=== PATIENT | male | born 1960 | race Caucasian/White ===

== ENCOUNTER 2017-02-09 15:40 | Emergency (ER) | payer OTHER ==
[~2017-02-09] VITALS: Ht 177.8 cm; Wt 111.6 kg
[~2017-02-09 15:40] MED LIST: AMLO1CAP PO; DEXT10TA7 PO; FENO145T32 PO
[2017-02-09 15:43] VITALS: BP 151/92
[2017-02-09 16:27] LABS: HEMATOCRIT 45.7 % (39.2-51.8); WHITE BLOOD COUNT 11.6 x10^3/uL (3.4-10)
[2017-02-09] MEDS ORDERED: SODIUM CHLORIDE FLUSH 10ML SYR IVF ONE (16:30)
[2017-02-09] MEDS ORDERED: SODIUM CHLORIDE 0.9% 1,000ML IVBOLUS ONE (16:30)
[2017-02-09] MEDS ORDERED: MORPHINE SULFATE 4 MG/ML, 1ML ONE ×2 (16:36→17:36)
[2017-02-09] MEDS ORDERED: ONDANSETRON 2MG/ML, 2ML ONE (16:36)
[2017-02-09 16:37] LABS: ASPARTATE AMINO TRANSFERASE 25 U/L (15-37); BLOOD UREA NITROGEN 14 mg/dL (7-18)
[2017-02-09] MEDS ORDERED: morphine SULFATE 10 MG/ML, 1ML IVPush ONE ×2 (17:00→18:00)
[2017-02-09] MEDS ORDERED: ONDANSETRON 2MG/ML, 2ML IVPush ONE (17:00)
[2017-02-09] MEDS ORDERED: OMNIPAQUE 350 MG/ML, 100ML BOTTLE ONE (17:18)
[2017-02-09] MEDS ORDERED: CIPROFLOXACIN/PMX 400MG/200ML 200 ML ONE (17:46)
[2017-02-09] MEDS ORDERED: CIPROFLOXACIN/PMX 400MG/200ML 200 ML IV ONE (18:00)
== END 2017-02-09 19:20 | disposition home or self-care (01) ==
LOC: ED 19:00
DX: K57.32 Diverticulitis of large intestine without perforation or abscess without bleeding (principal); I10 Essential (primary) hypertension; C64.9 Malignant neoplasm of unspecified kidney, except renal pelvis; F90.9 Attention-deficit hyperactivity disorder, unspecified type; Z85.528 Personal history of other malignant neoplasm of kidney; Z87.442 Personal history of urinary calculi; Z90.5 Acquired absence of kidney
CPT/HCPCS: 36415; 74177; 80053; 81003; 83690; 85025; 96361; 96365; 96375; 96376; 99285; J0744; J2270; J2405; J7030; Q9967

== ENCOUNTER 2017-07-23 15:41 | Inpatient (IN) | payer BC, OTHER ==
[~2017-07-23] VITALS: Ht 177.8 cm; Wt 107.5 kg
[2017-07-23] MEDS: ACETAMINOPHEN 500 MG TABLET PO SCH (00:25)
[2017-07-23 16:21] LABS: BASOPHILS # (AUTO) 0.05 x10^3/uL (0-0.1); BASOPHILS % (AUTO) 1 % (0-1); EOSINOPHILS # (AUTO) 0.19 x10^3/uL (0-0.4); EOSINOPHILS % (AUTO) 2 % (1-7); LYMPHOCYTES # (AUTO) 1.96 x10^3/uL (1-3.4); LYMPHOCYTES % (AUTO) 23 % (22-44); MD NO; MEAN CORPUSCULAR HEMOGLOBIN 27.4 pg (27.5-34.5); MEAN CORPUSCULAR HGB CONC 33.6 g/dL (33.2-36.2); MEAN CORPUSCULAR VOLUME 81.3 fL (81-97); MEAN PLATELET VOLUME 9.4 fL (7.4-10.4); MONOCYTES # (AUTO) 0.78 x10^3/uL (0.2-0.8); MONOCYTES % (AUTO) 9 % (2-9); NEUTROPHILS # (AUTO) 5.55 x10^3/uL (1.8-6.8); NEUTROPHILS % (AUTO) 65 % (42-75); PLATELET COUNT 275 x10^3/uL (130-400); RED BLOOD COUNT 5.69 x10^6/uL (4.38-5.82); RED CELL DISTRIBUTION WIDTH 14.4 % (9.4-14.8)
[2017-07-23] MEDS ORDERED: ONDANSETRON 2MG/ML, 2ML IVPush ONE (16:30)
[2017-07-23] MEDS ORDERED: SODIUM CHLORIDE FLUSH 10ML SYR IVF ONE (16:30)
[2017-07-23] MEDS ORDERED: ASPIRIN 81 MG TABLET CHEW PO ONE (16:30)
[2017-07-23 16:31] LABS: ALBUMIN 4.3 g/dL (3.4-5.0); ANION GAP 6 mmol/L (5-15); CALCIUM 9.7 mg/dL (8.5-10.1); CHLORIDE 107 mmol/L (98-107); CREATININE 1.31 mg/dL (0.7-1.3)
[2017-07-23] MEDS ORDERED: NITROGLYCERIN SINGLE TAB 0.4 MG SL PRN (17:00)
[2017-07-23] MEDS ORDERED: ASPIRIN 81 MG TABLET CHEW ONE (17:01)
[2017-07-23 17:17] LABS: TROPONIN I < 0.015 ng/mL (0.000-0.045)
[2017-07-23] MEDS ORDERED: AMLO10TA2 PO (17:17)
[2017-07-23] MEDS ORDERED: AMOX-291 PO (17:17)
[2017-07-23] MEDS ORDERED: BENA20TA2 PO (17:17)
[2017-07-23] MEDS ORDERED: ONDANSETRON 2MG/ML, 2ML ONE (17:21)
[2017-07-23] MEDS ORDERED: MORPHINE SULFATE 4 MG/ML, 1ML ONE ×2 (17:21→19:47)
[2017-07-23] MEDS: MORPHINE SULFATE 4 MG/ML, 1ML IVPush PRN ×2 (17:24→20:01)
[2017-07-23] MEDS ORDERED: ACET-458 PO (18:39)
[2017-07-23] MEDS ORDERED: SODIUM CHLORIDE FLUSH 10ML SYR IVF PRN (19:00)
[2017-07-23 21:49] VITALS: BP 111/74
[2017-07-23] MEDS ORDERED: BISACODYL 10 MG SUPP PR PRN (23:00)
[2017-07-23] MEDS ORDERED: ONDANSETRON 2MG/ML, 2ML IVPush PRN (23:00)
[2017-07-23] MEDS ORDERED: LABETALOL 5MG/ML, 20ML IVPush PRN (23:00)
[2017-07-23] MEDS ORDERED: POLYETHYLENE GLYCOL 17 GM PACKET PO PRN (23:00)
[2017-07-23] MEDS ORDERED: ACETAMINOPHEN 325 MG TABLET PO PRN (23:00)
[2017-07-23] MEDS ORDERED: ENALAPRILAT 1.25 MG/ML, 2ML IVPush PRN (23:00)
[2017-07-23] MEDS ORDERED: OXYcodone IR 5MG TABLET PO PRN (23:00)
[2017-07-23] MEDS ORDERED: CYCLOBENZAPRINE 10 MG TABLET PO PRN (23:30)
[2017-07-24 00:16] LABS: FREE T4 (FREE THYROXINE) 0.95 ng/dL (0.76-1.46); THYROID STIMULATING HORMONE 1.8 mIU/L (0.358-3.740)
[2017-07-24] MEDS: morphine SULFATE 10 MG/ML, 1ML IVPush PRN ×4 (00:25→11:14)
[2017-07-24] MEDS: SODIUM CHLORIDE 0.9% 1,000 ML IV SCH ×2 (00:25→08:13)
[2017-07-24] MEDS: HEPARIN 5,000 UNITS/ML, 1ML SQ SCH ×2 (00:25→08:14)
[2017-07-24 03:30] VITALS: BP 99/69
[2017-07-24 04:55] LABS: BASOPHILS # (AUTO) 0.05 x10^3/uL (0-0.1); BASOPHILS % (AUTO) 1 % (0-1); EOSINOPHILS # (AUTO) 0.25 x10^3/uL (0-0.4); EOSINOPHILS % (AUTO) 3 % (1-7); LYMPHOCYTES # (AUTO) 2.31 x10^3/uL (1-3.4); LYMPHOCYTES % (AUTO) 29 % (22-44); MD NO; MEAN CORPUSCULAR HEMOGLOBIN 26.9 pg (27.5-34.5); MEAN CORPUSCULAR VOLUME 81.6 fL (81-97); MEAN PLATELET VOLUME 9.4 fL (7.4-10.4); MONOCYTES # (AUTO) 0.87 x10^3/uL (0.2-0.8); MONOCYTES % (AUTO) 11 % (2-9); NEUTROPHILS # (AUTO) 4.42 x10^3/uL (1.8-6.8); NEUTROPHILS % (AUTO) 56 % (42-75); PLATELET COUNT 236 x10^3/uL (130-400); RED BLOOD COUNT 5.34 x10^6/uL (4.38-5.82); RED CELL DISTRIBUTION WIDTH 14.4 % (9.4-14.8)
[2017-07-24 05:07] LABS: ALBUMIN 3.5 g/dL (3.4-5.0); ANION GAP 5 mmol/L (5-15); CALCIUM 8.3 mg/dL (8.5-10.1); CHLORIDE 107 mmol/L (98-107)
[2017-07-24 05:10] LABS: ALANINE AMINOTRANSFERASE 27 U/L (12-78); ALKALINE PHOSPHATASE 65 U/L (45-117); BILIRUBIN,TOTAL 1.1 mg/dL (0.2-1.0); CHOL/HDL RATIO 4.4; CHOLESTEROL, TOTAL 128 mg/dL (140-239); CREATININE 1.32 mg/dL (0.7-1.3); HDL CHOL % 23 % (26-37); HDL CHOLESTEROL (DIRECT) 29 mg/dL (40-60); LDL CHOLESTEROL,CALCULATED 48 mg/dL (54-169); LDL/HDL RATIO 1.7 (0.5-3.0); TOTAL PROTEIN 7.1 g/dL (6.4-8.2); TRIGLYCERIDES 256 mg/dL (50-200); VLDL CHOLESTEROL 51 mg/dL (0-25)
[2017-07-24 05:16] LABS: HEMOGLOBIN A1C 5.8 % (4.2-6.3)
[2017-07-24] MEDS ORDERED: ASPIRIN 325 MG TABLET EC PO SCH (06:00)
[2017-07-24 06:08] LABS: MICROSCOPIC NOT IND
[2017-07-24 06:13] LABS: CULTURE INDICATED? NO
[2017-07-24 07:44] VITALS: BP 119/80
[2017-07-24 07:45] LABS: TROPONIN I < 0.015 ng/mL (0.000-0.045)
[2017-07-24] MEDS ORDERED: REGADENOSON 0.4 MG/5 ML SYRINGE ONE (08:08)
[2017-07-24] MEDS ORDERED: SENNA/DOCUSATE TABLET PO SCH (09:00)
[2017-07-24] MEDS ORDERED: BENAZEPRIL 20 MG TABLET PO SCH (09:00)
[2017-07-24] MEDS ORDERED: AMOXICILLIN 500 MG CAPSULE PO SCH (09:00)
[2017-07-24] MEDS ORDERED: AMLODIPINE 5 MG TABLET PO SCH (09:00)
[2017-07-24] MEDS: ACETAMINOPHEN 500 MG TABLET PO SCH (11:21)
== END 2017-07-24 13:40 | disposition home or self-care (01) | DRG 206 ==
LOC: ED 19:03 → EDIP 19:05 → 5SO 21:35 → DCLOUNGE 07-24 13:35
PROVIDERS: ADMIT Internal Medicine; ATTEND Internal Medicine
DX: M94.0 Chondrocostal junction syndrome [Tietze] (principal); F90.9 Attention-deficit hyperactivity disorder, unspecified type; I12.9 Hypertensive chronic kidney disease with stage 1 through stage 4 chronic kidney disease, or unspecified chronic kidney disease; I20.9 Angina pectoris, unspecified; Z79.82 Long term (current) use of aspirin; Z82.49 Family history of ischemic heart disease and other diseases of the circulatory system; Z85.528 Personal history of other malignant neoplasm of kidney; Z90.5 Acquired absence of kidney; Z87.442 Personal history of urinary calculi; Z96.651 Presence of right artificial knee joint; Z90.49 Acquired absence of other specified parts of digestive tract; N18.2 Chronic kidney disease, stage 2 (mild); Z88.6 Allergy status to analgesic agent
CPT/HCPCS: 36415; 71045; 78452; 80048; 80053; 80061; 81003; 82040; 83036; 83735; 83880; 84439; 84443; 84484; 85025; 93005; 93017; J1644; J2405; J2785; A9502; C9898; J2270; J7030